=== PATIENT | female | born 2000 | race Caucasian/White ===

== ENCOUNTER 2018-08-27 20:17 | Emergency (ER) | payer OTHER ==
[2018-08-27 20:39] VITALS: BP 115/67; PULSE 103; TEMP 99.3; BMI 28.3
--- NOTE | 2018-08-27 23:02 | PDOC ---
History of Present Illness - General Chief Complaint: Headache Stated Complaint: HEADACHE Time Seen by Provider: 08/27/18 22:31 History Source: Patient, Family Exam Limitations: No Limitations - History of Present Illness Initial Comments: 08/27/18 23:34 17 year old female with no PMH presents to ED for headache x3 days. She states it is located to her occiput and right side, radiates to her neck, 6/10 currently, intermittent, alleviated by sleep and motrin, aggravated by lights/ sounds/fast head movement. She denies nausea, vomiting, numbness, weakness, tingling, chest pain, shortness of breath, cough, visual changes, dizziness. PCP - Day Past History - Past Medical History Allergies/Adverse Reactions: Allergies Allergy/AdvReac Type Severity Reaction Status Date / Time No Known Allergies Allergy Verified 08/27/18 20:39 Home Medications: Ambulatory Orders NK [No Known Home Medication] 08/28/18 COPD: No - Suicide/Smoking/Psychosocial Hx Smoking History: Never smoked Review of Systems - Review of Systems Able to Perform ROS?: Yes Comments:: 08/27/18 23:38 General: admits to chills. denies fever, night sweats, generalized weakness. HEENT: admits to neck pain. admits to sore throat. denies rhinorrhea, ear pain. Heart: denies chest pain, palpitations, syncope, lower extremity swelling, diaphoresis. Respiratory: denies shortness of breath, cough, sputum production, hemoptysis. Abdomen: denies abdominal pain, nausea, vomiting, diarrhea, constipation, blood in stool. : denies dysuria, increased urinary frequency, hematuria, urinary incontinence , flank pain. Back: denies back pain. Musculoskeletal: denies muscle pain, joint swelling. Neurological: admits to headache, photophobia, phonophobia. denies dizziness, numbness, tingling, weakness. Skin: denies rash, laceration, abrasion. *Physical Exam - Vital Signs Last Vital Signs Temp Pulse Resp BP Pulse Ox 99.3 F 103 H 18 115/67 99 08/27/18 20:36 08/27/18 20:36 08/27/18 20:36 08/27/18 20:36 08/27/18 20:36 - Physical Exam Comments: 08/27/18 23:41 Constitutional: Well-nourished, Well-developed, appearing stated age. appears well. laughing during examination. HEENT: head is normocephalic, atraumatic. EOMI. PERRLA. no posterior pharyngeal erythema. no tonsillar asymmetry. no tonsillar exudates. no cervical adenopathy. oral mucosa moist. Neck: supple. Full ROM. no nuchal rigidity. Heart: regular rhythm. no murmurs, rubs or gallops. Lungs: clear to auscultation bilaterally. no crackles, rhonchi or wheezing. no stridor. Abdomen: soft, nontender. normal bowel sounds. no rebound, guarding, masses. Extremities: Peripheral pulses intact. No lower extremity edema. Neurological: Alert. Oriented x3. CN2-12 intact. 5/5 strength all extremities. Full sensation all extremities and bilateral face. Romberg negative. Finger to nose normal. Gait normal. Kernig and Brudzinski negative. Psych: awake, alert, oriented x3. Follows commands. Answers questions appropriately. Medical Decision Making - Medical Decision Making 08/27/18 23:41 17 year old female with no PMH presents to ED for headache x3 days. Initial Vital Signs Temp Pulse Resp BP Pulse Ox 99.3 F 103 H 18 115/67 99 08/27/18 20:36 08/27/18 20:36 08/27/18 20:36 08/27/18 20:36 08/27/18 20:36 Afebrile. Mild tachycardia. - IVF ordered No tachypnea. No hypotension. No hypoxia on room air. Reglan, Tylenol, Benadryl,fluids ordered for pain. Pending Urine test. Low concern for SAH - Symptoms gradual in nature - No N/V/seizures - No CN deficits - No nuchal rigidity - Will reassess symptoms 08/28/18 00:27 Pt reports complete resolution of headache and would like to go home. Urine test negative. Pt will be discharged with strict return precautions and follow up instructions. *DC/Admit/Observation/Transfer Diagnosis at time of Disposition: Headache - Discharge Dispostion Disposition: HOME Condition at time of disposition: Stable Decision to Admit order: No - Referrals - Patient Instructions Printed Discharge Instructions: DI for Headache Additional Instructions: You were seen today for headache. Take Tylenol over the counter for your headache. Take as directed on package. Drink lots of water to stay hydrated. Get at least 8 hours of sleep tonight. Follow up with your primary care physician within 5 days, and bring the paperwork given to you today with you. Call their office today, tell them you were seen in the Emergency Department, and make an appointment for tomorrow or Friday. Return to the Emergency Department for sudden headache, weakness, numbness, tingling, visual changes, facial drooping, problems speaking, fever, chills, nausea, vomiting, increasing pain, or any new, worsening or concerning symptoms. TRANSLATED VIA Vserv TRANSLATE: David te vieron por dolor de zoran. [place] Tylenol sobre el contador para el dolor de zoran. Tessa christine se indica en el paquete. Michelle rojas agua para mantenerte hidratado. Duerme al menos 8 horas esta noche. Go un seguimiento con yun mdico de atencin primaria dentro de los 5 campos y traiga los documentos que se le entreguen david. Llame a yun oficina david, dgales que lo vieron en el [facility] y go jan brian para maana o el lunes. Regrese al [facility] para un dolor de zoran repentino, debilidad, entumecimiento, hormigueo, cambios visuales, cada del hima, problemas para hablar, fiebre, escalofros, nuseas, vmitos, dolor creciente o cualquier sntoma nuevo, que empeore o se relacione con ellos. - Post Discharge Activity Forms/Work/School Notes: Back to Work, Back to School
[2018-08-27] MEDS ORDERED: ACETAMINOPHEN 1000 MG/100 ML VIAL (NON FORMULARY) IVPB ONE (23:27)
[2018-08-27] MEDS ORDERED: METOCLOPRAMIDE HCL 10 MG TABLET (FP) PO ONE (23:28)
[2018-08-27] MEDS ORDERED: SODIUM CHLORIDE 1,000 ML IV STA (23:29)
[2018-08-27] MEDS ORDERED: ACETAMINOPHEN INJECTION 100 ML IVPB ONE (23:39)
[2018-08-27] MEDS ORDERED: METOCLOPRAMIDE HCL INJECTION 10 MG/2 ML VIAL ONE (23:39)
--- NOTE | 2018-08-28 00:29 | PDOC ---
Attending Attestation - Resident Resident Name: Zaynab Wei - ED Attending Attestation I have performed the following: I have examined & evaluated the patient, The case was reviewed & discussed with the resident, I agree w/resident's findings & plan, Exceptions are as noted - Medical Decision Making 08/28/18 00:27 I, Dr. Olivia Bain DO, attest that this document has been prepared under my direction and personally reviewed by me in its entirety. I further attest, that it accurately reflects all work, treatment, procedures and medical decision -making performed by me. 08/28/18 00:27 17yo female with kowalski -neuro intact -no fevers -no meningeal signs -no blurred vision -no rhinorrhea or cough -no trauma -no blurred vision -ambulates with a steady gait 08/28/18 00:28 pt states kowalski resolved. states she wants to go home. calling her parents to pick her up pt neuro intact stable for d/c to home <Olivia Bain - Last Filed: 08/28/18 00:27> - HPI HPI: 08/28/18 00:29 The patient is a 17 year old female with no significant past medical history who presents to ED for 3 days of headache. Patient reports an intermittent headache located to her occiput and right side. She states her headache radiates to her neck and is currently a 6/10 currently. She notes her headache is alleviated by sleep and motrin and aggravated by lights/sounds/fast head movement. She denies nausea, vomiting, numbness, weakness, tingling, chest pain , shortness of breath, cough, visual changes, dizziness. Denies any other symptoms. Documentation prepared by Hans James, acting as medical billing service for Olivia Bain DO - Physicial Exam PE: 08/28/18 00:29 Constitutional: Awake, alert, oriented. No acute distress. Head: Normocephalic. Atraumatic Eyes: PERRL. EOMI. Conjunctivae are not pale. ENT: Mucous membranes are moist and intact. Posterior pharynx without exudates or erythema. Uvula midline. Neck: Supple. Full ROM. No lymphadenopathy. Cardiovascular: Regular rate. Regular rhythm. S1, S2 regular. Distal pulses are 2+ and symmetric. Pulmonary/Chest: No evidence of respiratory distress. Clear to auscultation bilaterally No wheezing, rales or rhonchi. Abdominal: Soft and non-distended. There is no tenderness. No rebound, guarding or rigidity. No organomegaly. No palpable masses. Good bowel sounds. Back: No CVA tenderness. Musculoskeletal: No edema. No cyanosis. No clubbing. Full range of motion in all extremities. Nocalf tenderness. Radial/pedal pulses are intact and 2+ bilaterally Skin: Skin is warm and dry. No petechiae. No purpura. Neurological: Alert and oriented to person, place, and time. Cranial nerves II -XII are grossly intact. Normal speech. Strength is grossly symmetric. No sensory deficits. Psychiatric: Good eye contact. Normal interaction, affect and behavior. <Hans James - Last Filed: 08/28/18 00:29>
== END 2018-08-28 00:47 | disposition home or self-care (01) ==
LOC: JERFT 20:17 → JER 20:17
PROC: 3E033NZ Introduction of Analgesics, Hypnotics, Sedatives into Peripheral Vein, Percutaneous Approach (ICD-10-PCS; principal; 2018-08-27)
PROC: 3E033GC Introduction of Other Therapeutic Substance into Peripheral Vein, Percutaneous Approach (ICD-10-PCS; 2018-08-27)
DX: R51 Headache (principal)
CPT/HCPCS: 84703; 99282-25; J0131; J7030